=== PATIENT | male | born 1980 | race Caucasian/White ===

== ENCOUNTER 2019-02-20 13:34 | Emergency (ER) | payer OTHER ==
[~2019-02-20] VITALS: Ht 180.3 cm; Wt 104.5 kg
[2019-02-20 13:46] VITALS: BP 139/99
[2019-02-20] MEDS ORDERED: NAPR-56 PO (16:05)
[2019-02-20] MEDS ORDERED: METH-360 PO (16:05)
== END 2019-02-20 16:43 | disposition home or self-care (01) ==
LOC: ER 13:35
DX: S16.1XXA Strain of muscle, fascia and tendon at neck level, initial encounter (principal); M54.5 Low back pain; M25.511 Pain in right shoulder; M25.561 Pain in right knee; V87.7XXA Person injured in collision between other specified motor vehicles (traffic), initial encounter; Y93.89 Activity, other specified; Y92.488 Other paved roadways as the place of occurrence of the external cause; Y99.8 Other external cause status
CPT/HCPCS: 72040; 72100; 99283